=== PATIENT | male | born 1990 | race African-American/Black ===

== ENCOUNTER 2017-09-30 20:11 | Emergency (ER) | payer MEDICAID ==
[~2017-09-30] VITALS: Ht 193 cm; Wt 99.8 kg
[2017-09-30 20:26] VITALS: BP 152/90
--- NOTE | 2017-09-30 20:28 | Emergency Room Report ---
History of Present Illness General Chief Complaint: Upper Extremity Injury Source: Family Member Present Illness HPI Patient reports that he had a fall yesterday He was at [facility] And was admitted overnight Reports that he was told it was out of place and that he would require surgery Patient's mom wanted a second opinion therefore she presents to the ER Patient has difficulty moving or raising the right arm He denies any previous dislocations denies any other chest pain or shortness of breath Pain is 6 out of 10 to the right shoulder with attempt of movement Allergies: Coded Allergies: No Known Allergies (Unverified , 09/30/17) Patient History Past Medical History: see triage record Pertinent Family History: none Reviewed Nursing Documentation: PMH: Agreed; PSxH: Agreed Nursing Documentation-PMH History Of Psychiatric Problem: Yes - SCHIZO Review of Systems All Other Systems: negative except mentioned in HPI Physical Exam Vital Signs Date Time Temp Pulse Resp B/P (MAP) Pulse Ox O2 Delivery O2 Flow Rate FiO2 09/30/17 20:12 98.2 58 16 152/93 95 Room Air 98.2 Sp02 EP Interpretation: reviewed, normal General Appearance: no apparent distress Head: normocephalic, atraumatic Eyes: bilateral eye PERRL, bilateral eye EOMI ENT: normal pharynx, no angioedema Neck: full range of motion, supple Respiratory: lungs clear, normal breath sounds Cardiovascular #1: regular rate, rhythm, no edema Gastrointestinal: non tender, soft Musculoskeletal: other - Obvious deformity to the right shoulder, neurovascularly intact, unable to extend or flex at the right shoulder Neurologic: alert, oriented x3, responsive Skin: normal color, no rash Lymphatic: no adenopathy Procedures Splinting Splinting : Consent: Written Location: right shoulder Pre-Made Type: shoulder immobilizer Splint: Pre-Proc Neuro Vasc Exam: normal Post-Proc Neuro Vasc Exam: normal Patient Tolerated: Well Complications: None Joint Reduction Joint Reduction : Consent: Written Joint Reduction Site: shoulder (R) Procedural Sedation: Yes Reduction Attempts: One Pre-Procedure NV Exam: Yes Post-Procedure NV Exam: Yes Post Joint Reduction Film: joint reduced Patient Tolerated: Well Complications: None Procedural Sedation Consent: Written Time out called at: 21:10 Pre-Sedation Assessment: Plan for Sedation Discuss Airway Assessment (Malampati): I Heart: normal Lungs: normal Abdomen: normal Extremities: normal Procedures/Plans: Closed Reduction Plan for Moderate Sedation: Propofol ASA Score: I Start Time: 21:11 End Time: 21:16 Communication: No Apparent Limitation Mental Status: Awake Respiration: Unlabored Skin Condition: WNL Abdomen: WNL Nausea: NO Vomiting: NO Additional Comments: total [id number] time 6 minutes Medical Decision Making Diagnostic Impression: Primary Impression: Shoulder dislocation ER Course Clinically patient has findings consistent with a right shoulder dislocation X-ray imaging does reveal this The history is not fully clear Patient's mom reports that the patient had been told he requires surgery And reports that she had left [facility] for second opinion At this time the shoulder dislocation was reduced without any significant pathology under procedural sedation He tolerated the procedure well x-ray imaging reveals reduced shoulder and was placed into a splint And is appropriate for close outpatient follow-up Other X-Ray Diagnostic Results Other X-Ray Diagnostic Results #1: X-Ray ordered: Right shoulder # of Views/Limited Vs Complete: 3 View Indication: Pain EP Interpretation: Yes Interpretation: no soft tissue swelling, no fractures, other - Dislocation Impression: Other - Right shoulder dislocation Electronically Signed by: Hussain Ramsay DO Other X-Ray Diagnostic Results #2: X-Ray ordered: Right shoulder # of Views/Limited Vs Complete: 2 View Indication: Other - Reduction EP Interpretation: Yes Interpretation: no dislocation, no soft tissue swelling, no fractures Impression: No acute disease - Appropriately reduced Electronically Signed by: Hussain Ramsay DO Last Vital Signs Date Time Temp Pulse Resp B/P (MAP) Pulse Ox O2 Delivery O2 Flow Rate FiO2 09/30/17 20:12 98.2 58 16 152/93 95 Room Air 98.2 Status: improved Disposition: HOME, SELF-CARE Condition: Improved Scripts Ibuprofen* (MOTRIN*) 600 Mg Tablet 600 MG ORAL Q8H PRN for For Pain, #20 TAB 0 Refills Prov: Hussain Ramsay DO 09/30/17 Additional Instructions: Patient is provided with the discharge instructions notified to follow up with primary doctor in the next 2-3 days otherwise return to the er with any worsening symptoms. Please note that this report is being documented using [employer] technology. This can lead to erroneous entry secondary to incorrect interpretation by the dictating instrument. Hussain Ramsay DO Sep 30, 2017 20:28
[2017-09-30] MEDS ORDERED: Propofol 200mg/20ml IV ONE ×2 (21:03→21:30)
[2017-09-30 21:11] VITALS: BP 139/84
[2017-09-30 21:16] VITALS: BP 151/88
[2017-09-30] MEDS ORDERED: IBUPROFEN600 MG ORAL (21:43)
[2017-09-30 22:16] VITALS: BP_SYST 153; BP_SYST 154; BP_DIAS 88; BP_DIAS 90
[2017-09-30 22:29] VITALS: BP 154/88
--- NOTE | 2017-10-01 10:13 | Diagnostic Imaging Report ---
Indication: Right shoulder pain Technique: 3 views of the right shoulder Comparison: none Findings: There is anterior dislocation of the right shoulder. No definite associated fracture. Impression: Positive for anterior dislocation. No acute fracture There is a post reduction film available, indicating this was recognized by the ED physician
--- NOTE | 2017-10-01 10:44 | Diagnostic Imaging Report ---
Indication: Pain, post reduction Technique: 2 views of the shoulder Comparison: One hour earlier Findings: Interim reduction of previously demonstrated right shoulder dislocation. No bony abnormality demonstrated. Impression: Satisfactory reduction of previously demonstrated right shoulder dislocation
== END 2017-09-30 22:30 | disposition home or self-care (01) ==
LOC: EMR 20:26
DX: S43.004A Unspecified dislocation of right shoulder joint, initial encounter (principal); W19.XXXA Unspecified fall, initial encounter; Y92.9 Unspecified place or not applicable
CPT/HCPCS: 23655; 29105; 73030; 99284; J2704; Z7502